=== PATIENT | female | born 1980 | race Caucasian/White ===

== ENCOUNTER → 2025-04-21 09:06 | Outpatient (REF) | payer OTHER, SELFPAY ==
[2025-04-21 10:34] LABS: Blood Urea Nitrogen 11 mg/dl (7-17); Calcium 9.9 mg/dl (8.4-10.2); Carbon Dioxide 28 mmol/L (22-30); Glucose 92 mg/dl (70-99); Potassium 4.6 mmol/L (3.5-5.1); Sodium 138 mmol/L (135-145); eGFR > 60.00
[2025-04-21 10:43] LABS: Chloride 104 mmol/L (98-107)
== END ==
LOC: REG 09:06
PROVIDERS: ATTENDING PHYSICIAN Nurse Practitioner Family; FAMILY PHYSICIAN Registered Nurse
DX: Z91.89 Other specified personal risk factors, not elsewhere classified (principal)
CPT/HCPCS: 36415; 80048

== ENCOUNTER 2025-06-03 17:03 | Emergency (ER) | payer OTHER, SELFPAY ==
[2025-06-03 17:07] VITALS: BP 120/77
--- NOTE | 2025-06-03 17:59 | ED.GENMED ---
History of Present Illness
General
Chief Complaint: Abdominal Symptoms
Source: patient
Exam Limitations: none
Time Seen by Provider: 06/03/25 17:54
History of Present Illness
History of Present Illness:
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 Symptoms began yesterday morning. Her vomiting has
resolved but she continues to have diarrhea throughout the day today. She also feels very fatigued and has a moderate 4-5/10 headache. She believes her symptoms are secondary to stress. She spoke with her diesel technician who advised her to go to
the ED for lab work and IV steroids. Her diesel technician did instruct her to increase her hydrocortisone dose today. She typically takes 20 mg daily but took 30 mg today. She also had leftover prednisone and took a dose yesterday. She is also
maintained on desmopressin 0.1 mg twice daily and levothyroxine.
Phy Exam
General Physical Exam
General Presentation: well appearing and no apparent distress
General Skin: warm and dry
General Habitus: normal
General Mental: alert
ENT Exam
ENT Exam: normocephalic
Cardiovascular Exam
Cardiovascular Exam: regular rate/rhythm, no edema and no murmur
Pulmonary Exam
Pulmonary Exam: lungs clear, no respiratory distress, no rales, no crackles, no rhonchi and no wheezing
Neurological Exam
Neurological Exam: alert
[place] Coma Scale
Eye Opening: Spontaneous
Verbal Response: Oriented
Motor Response: Obeys Commands
GCS Total Score: 15
Skin Exam
Skin Exam: normal color and warm/dry
Psychiatric Exam
Psychiatric Exam: normal mood/affect
Course
Orders/Labs/Results
Orders:
Orders
06/03/25 17:10
ECG [Electrocardiogram (*1)] Urgent
Reason for Study: Other
Other Reason for Exam: sodium level low
EKG- Treatment ONCE
06/03/25 18:09
0.9% Sodium Chloride 1000 ml [Nss] 1,000 ml IV BOLUS
Hydrocortisone Sod Succinate [Solu-Cortef] 100 mg IV NOW STA
06/03/25 18:10
Test Result ONCE
06/03/25 18:20
Complete Blood Count/With Diff Urgent
Comprehensive Metabolic Panel Urgent
HCG, Serum Qualitative Screen Urgent
Magnesium Urgent
Abnormal Lab Results
06/03/25
18:20
WBC 4.7 L 10^3/uL
(4.8-10.8)
Absolute Lymphs (auto) 0.7 L 10^3/uL
(1.2-3.4)
Neutrophils % 78.0 H %
(42.2-75.2)
Lymphocytes % 15.0 L %
(20.5-51.1)
Sodium 134 L mmol/L
(135-145)
Glucose 106 H mg/dl
(70-99)
06/03/25 18:20
06/03/25 18:20
Vital Signs
Initial and Last Documented VS:
Initial Vital Signs
Temp Pulse Resp BP Pulse Ox
98.0 F 75 20 120/77 97
06/03/25 17:07 06/03/25 17:07 06/03/25 17:07 06/03/25 17:07 06/03/25 17:07
Last Documented Vital Signs
Temp Pulse Resp BP Pulse Ox
98.0 F 55 19 119/77 93
06/03/25 17:07 06/03/25 19:30 06/03/25 19:30 06/03/25 19:00 06/03/25 19:30
MDM/Problems Addressed
Differential Diagnosis Includes:
44yoF here with n/v/d x 1 day. Vomiting has resolved but she continues to have diarrhea. Hx of adrenal insufficiency and diabetes insipidus. Sent in by her diesel technician for labs and IV steroids. BP 120/77 on arrival and remainder of labs
unremarkable. Patient well-appearing in no distress. Differential diagnosis includes but is not limited to: Dehydration, electrolyte abnormality, MEKHI, adrenal crisis
Initial ED plan: Check CBC, CMP, UA, and hCG. Monitor milligrams IV Solu-Cortef and normal saline bolus ordered.
*Pulse Oximetry
SaO2: 97
Oxygen Mode of Delivery: Room air
Patient hypoxic: no
*EKG
Interpreted by ED Provider?: Yes
EKG Intrepretation Date: 06/03/25
Heart Rate: 55
Rate: bradycardiac
Rhythm: sinus
[place]: normal axis
Interval: normal interval
QRS Pattern: normal QRS
Ischemia: no ischemia
*Critical Care Note
Total Time (30-74mins, 75-104mins- exclusive of procedures): Not Applicable
Update Note
Update Note:
Labs reveal a sodium of 134. Remainder of electrolytes and renal function are normal. I personally called patient's diesel technician, Dr. Zee, to discuss case. Dr. Zee recommends discharging patient with plan to increase hydrocortisone
dose to 20mg BID until diarrhea resolves. She should also hold her desmopressin until symptoms of diabetes insipidus return (increased thirst, excessive urination) to avoid hypovolemic hyponatremia. Patient has a script to have repeat labs in 3
days to monitor her sodium levels. ED return precautions reviewed including recurrent vomiting or inability to keep down her medications. Patient in agreement with plan and was discharged in stable condition.
ED Attending Note
-
Portions of this chart may have been created with voice recognition software.� Occasional wrong word or��sound alike� substitutions may have occurred due to the inherent limitations of voice recognition software.
Discharge Plan
Departure
Patient Disposition: Home (Routine Discharge)
Date of Disposition: 06/03/25
Time of Disposition: 19:12
Patient with high blood pressure during this ER visit?: No
Discharge Problem:
Nausea, vomiting, and diarrhea
Instructions: Nausea and Vomiting, Adult (DC)
Referrals:
Seda Amador CRNP [Family Provider, Family Practice]
Activity Restrictions/Additional Instructions:
You should take hydrocortisone 20 mg twice a day while you are having diarrhea. After diarrhea resolves, you can go back to 30 mg daily.
Do not take your desmopressin until your symptoms of diabetes insipidus return (increased thirst, increased urination).
You should have repeat blood work on Friday to check your sodium levels.
Return to the ER with any worsening symptoms including vomiting or if you are unable to keep down your medications.
Interventions
Interventions:
*Risk Screen - Suicide Last Done: 06/03/25 18:16
*General Assessment Last Done: 06/03/25 17:07
*Neglect/Abuse Screening Last Done: 06/03/25 18:16
*ED- Fall Risk Assessment Last Done: 06/03/25 18:16
*ED COVID-19 Vaccine History Last Done: 06/03/25 18:05
*ED Influenza Vaccine History Last Done: 06/03/25 18:16
[id number]-[id number] Assessment Last Done: 06/03/25 18:50
Discharge Date and Time
Print Language: IRISH
[2025-06-03] MEDS: NSS 1000 IV (18:20)
[2025-06-03] MEDS: SOLU-CORTEF 100 MG IV (18:21)
[2025-06-03 18:37] LABS: Hematocrit 40.2 % (37.0-47.0); Hemoglobin 13.5 g/dL (12.0-16.0); Mean Corp Hgb Conc. 33.6 g/dL (33.0-37.0); Mean Corpuscular Volume 92.2 fL (81.0-99.0); Nucleated Red Blood Cells % 0 %; Platelet Count 354 10^3/uL (130-400); Red Cell Dist. Width 12.0 % (11.5-14.5)
[2025-06-03 18:41] LABS: HCG, Serum Qualitative Screen Negative
[2025-06-03 18:46] LABS: ALT (SGPT) 28 U/L (0-35); AST (SGOT) 25 U/L (14-36); Albumin 4.7 g/dl (3.5-5.0); Alkaline Phosphatase 81 U/L (38-126); Blood Urea Nitrogen 10 mg/dl (7-17); Calcium 9.5 mg/dl (8.4-10.2); Carbon Dioxide 25 mmol/L (22-30); Chloride 101 mmol/L (98-107); Glucose 106 mg/dl (70-99); Magnesium 2.0 mg/dl (1.6-2.3); Potassium 4.3 mmol/L (3.5-5.1); Sodium 134 mmol/L (135-145); Total Protein 7.4 g/dl (6.3-8.2); eGFR > 60.00
[2025-06-03 19:00] VITALS: BP 119/77
[2025-06-03 20:00] VITALS: BP 123/90
== END 2025-06-03 20:25 | disposition home or self-care (01) ==
LOC: EMR 17:03
PROVIDERS: Physician Assistant; EMERGENCY PHYSICIAN Emergency Medicine; FAMILY PHYSICIAN Registered Nurse
DX: R11.2 Nausea with vomiting, unspecified (principal); R19.7 Diarrhea, unspecified; E27.40 Unspecified adrenocortical insufficiency; E03.9 Hypothyroidism, unspecified; Z79.890 Hormone replacement therapy
CPT/HCPCS: 99283; 96374; 96361; 80053; 83735; 84703; 85025; 93005